=== PATIENT | female | born 1985 | race Caucasian/White ===

== ENCOUNTER 2018-05-06 20:11 | Emergency (ER) | payer OTHER ==
[2018-05-06] MEDS ORDERED: Aluminum Hydroxide/Magnesium Hydroxide Susp 30 ML Cup PO ONE (20:40)
--- NOTE | 2018-05-06 20:58 | EDM.PDOC ---
ED HPI GENERAL MEDICAL PROBLEM - General Chief Complaint: Abdominal Pain Stated Complaint: STOMACH PAIN Time Seen by Provider: 05/06/18 20:30 Source of Information: Reports: Patient History Limitations: Reports: No Limitations - History of Present Illness INITIAL COMMENTS - FREE TEXT/NARRATIVE: Elsa is a 32-year-old female came in because of epigastric pain. Pain was insidious onset about 4 days ago, described as cramps.With no radiation. Tried Pepcid and Zantac with no relief. There is no associated nausea vomiting or diarrhea name is that any constipation. There is no shortness of breath or chest pain. Elsa is otherwise healthy with no active medical problems. - Related Data Home Meds: Home Meds Omeprazole 20 mg PO DAILY #30 tab. 05/06/18 [Rx] ED ROS GENERAL - Review of Systems Review Of Systems: ROS reveals no pertinent complaints other than HPI. ED EXAM, GI/ABD - Physical Exam Exam: See Below Exam Limited By: Altered Mental Status General Appearance: Alert, WD/WN Eyes: Bilateral: Normal Appearance, EOMI Ears: Normal External Exam, Normal Canal, Hearing Grossly Normal, Normal TMs Nose: Normal Inspection, Normal Mucosa, No Blood Neck: Normal Inspection Respiratory/Chest: No Respiratory Distress, Lungs Clear Cardiovascular: Normal Peripheral Pulses GI/Abdominal Exam: Normal Bowel Sounds, Soft, No Organomegaly, No Distention, Tender (Epigastric deep palpation). No: Non-Tender, Distended Course - Vital Signs Text/Narrative:: Maalox did not change her symptoms - Orders/Labs/Meds Labs: Laboratory Tests 05/06/18 05/06/18 Range/Units 21:00 21:00 WBC 6.9 (4.5-12.0) X10-3/uL RBC 4.01 (3.23-5.20) x10(6)uL Hgb 13.0 (11.5-15.5) g/dL Hct 36.9 (30.0-51.3) % MCV 92.2 (80-96) fL MCH 32.5 (27.7-33.6) pg MCHC 35.3 (32.2-35.4) g/dL RDW 11.8 (11.5-15.5) % Plt Count 159 (125-369) X10(3)uL MPV 9.8 (7.4-10.4) fL Neut % (Auto) 61.7 (46-82) % Lymph % (Auto) 27.8 (13-37) % Mariposa % (Auto) 5.6 (4-12) % Eos % (Auto) 4 (1.0-5.0) % Baso % (Auto) 1 (0-2) % Neut # (Auto) 4.2 (1.6-8.3) # Lymph # (Auto) 1.9 (0.6-5.0) # Mariposa # (Auto) 0.4 (0.0-1.3) # Eos # (Auto) 0.3 (0.0-0.8) # Baso # (Auto) 0.1 (0.0-0.2) # Sodium 142 (135-145) mmol/L Potassium 3.4 L (3.5-5.3) mmol/L Chloride 104 (100-110) mmol/L Carbon Dioxide 33 H (21-32) mmol/L BUN 13 (7-18) mg/dL Creatinine 0.8 (0.55-1.02) mg/dL Est Cr Clr Drug Dosing TNP Estimated GFR (MDRD) > 60 (>60) BUN/Creatinine Ratio 16.3 (9-20) Glucose 78 L (80-116) mg/dL Calcium 8.9 (8.6-10.2) mg/dL Total Bilirubin 0.3 (0.1-1.3) mg/dL AST 13 (5-25) IU/L ALT 16 (12-36) U/L Alkaline Phosphatase 60 (56-112) IU/L Total Protein 7.2 (6.0-8.0) g/dL Albumin 3.7 (3.5-5.2) g/dL Globulin 3.5 g/dL Albumin/Globulin Ratio 1.1 Amylase 30 (25-115) U/L Meds: Medications Discontinued Medications Generic Name Dose Route Start Last Admin Trade Name Freq PRN Reason Stop Dose Admin Al Hydroxide/Mg Hydroxide 30 ml 05/06/18 20:40 05/06/18 20:40 Mag-Al Susp PO 05/06/18 20:41 30 ml ONETIME ONE Administration Departure - Departure Time of Disposition: 21:33 Disposition: Home, Self-Care 01 Clinical Impression: Gastritis, Abdominal pain - Discharge Information Prescriptions: Omeprazole 20 mg PO DAILY #30 tab. Instructions: Peptic Ulcer, [id number] Referrals: Alison Mixon, [facility] [Primary Care Provider] - 3 Days Forms: ED Department Discharge - Problem List & Annotations (1) Epigastric abdominal pain SNOMED Code(s): 90154221 Code(s): R10.13 - EPIGASTRIC PAIN Status: Acute Current Visit: No - Problem List Review Problem List Initiated/Reviewed/Updated: Yes - Assessment/Plan Assessment:: I will send her home on omeprazole 20 mg a day. Differential diagnostic considerations include peptic ulcer disease, GERD, IBS. I've asked her to return to the ED with any worsening symptoms. Otherwise see her PCP on or Saturday. Plan: I will send her home on omeprazole 20 mg a day. Differential diagnostic considerations include peptic ulcer disease, GERD, IBS. I've asked her to return to the ED with any worsening symptoms. Otherwise see her PCP on or Saturday.
== END 2018-05-06 21:50 | disposition home or self-care (01) ==
LOC: FB.ED 20:11
DX: K29.70 Gastritis, unspecified, without bleeding (principal)
CPT/HCPCS: 36415; 80053; 82150; 85025; 99284; A9270-GY

== ENCOUNTER 2018-08-26 11:12 | Emergency (ER) | payer OTHER ==
--- NOTE | 2018-08-26 12:14 | EDM.PDOC ---
ED HPI GENERAL MEDICAL PROBLEM - General Chief Complaint: Respiratory Problem Stated Complaint: COUGH Time Seen by Provider: 08/26/18 11:12 Source of Information: Reports: Patient History Limitations: Reports: No Limitations - History of Present Illness INITIAL COMMENTS - FREE TEXT/NARRATIVE: 33 years old w f -smoker-come to the ed due to cold symptoms with productive cough and gen bodyache. No N/V/D, dizziness or any other acute med issues. BP 130/76 Pulse 110 RR 18 Pulse ox 98% on RA Temp 37.2 Onset: Unknown/Unsure Onset Date: 08/24/18 Onset Time: 06:00 Duration: Hour(s):, Day(s):, Getting Worse, Intermittent Location: Reports: Chest Quality: Reports: Burning Severity: Mild Improves with: Reports: Rest Worsens with: Reports: Movement Context: Reports: Sick Contact Associated Symptoms: Reports: Cough - Related Data Allergies Allergy/AdvReac Type Severity Reaction Status Date / Time hydrocodone Allergy Nausea Verified 08/26/18 11:23 Home Meds: Home Meds Omeprazole 20 mg PO DAILY #30 tab.rap.dr 05/06/18 [Rx] Codeine/guaiFENesin [Robitussin AC] 5 ml PO BID PRN #1 bottle 08/26/18 [Rx] Sulfamethoxazole/Trimethoprim [Bactrim Ds Tablet] 1 each PO BID #20 tablet 08/26 [Rx] Past Medical History HEENT History: Reports: Impaired Vision - Past Surgical History HEENT Surgical History: Reports: Tonsillectomy, Other (See Below) Other HEENT Surgeries/Procedures: right eardrum repair Female Surgical History: Reports: Section, Tubal Ligation Musculoskeletal Surgical History: Reports: Other (See Below) Other Musculoskeletal Surgeries/Procedures:: back surgery , ankle repair -2015 ED ROS GENERAL - Review of Systems Review Of Systems: See Below Constitutional: Reports: Chills, Weakness HEENT: Reports: No Symptoms Respiratory: Reports: Cough (productive) Cardiovascular: Reports: No Symptoms Endocrine: Reports: No Symptoms GI/Abdominal: Reports: No Symptoms : Reports: No Symptoms Musculoskeletal: Reports: No Symptoms Skin: Reports: No Symptoms Neurological: Reports: No Symptoms Psychiatric: Reports: No Symptoms Hematologic/Lymphatic: Reports: No Symptoms Immunologic: Reports: No Symptoms ED EXAM, GENERAL - Physical Exam Exam: See Below Exam Limited By: No Limitations General Appearance: Alert, WD/WN, Mild Distress Eye Exam: Bilateral Eye: Normal Inspection Ears: Normal External Exam Ear Exam: Bilateral Ear: Auricle Normal Nose: Normal Inspection, Normal Mucosa Throat/Mouth: Normal Inspection, Normal Lips, Normal Voice, No Airway Compromise Head: Atraumatic, Normocephalic Neck: Normal Inspection, Supple, Non-Tender, Full Range of Motion Respiratory/Chest: No Respiratory Distress, Lungs Clear, Normal Breath Sounds, No Accessory Muscle Use, Chest Non-Tender Cardiovascular: Normal Peripheral Pulses, Regular Rate, Rhythm, No Edema, No Gallop, No JVD, No Murmur, No Rub GI/Abdominal: Normal Bowel Sounds, Soft, Non-Tender, No Organomegaly, No Distention, No Abnormal Bruit, No Mass, Pelvis Stable (Female) Exam: Deferred Rectal (Female) Exam: Deferred Back Exam: Normal Inspection, Full Range of Motion Extremities: Normal Inspection, Normal Range of Motion, Non-Tender, No Pedal Edema, Normal Capillary Refill Neurological: Alert, Oriented, CN II-XII Intact, Normal Cognition, Normal Gait Psychiatric: Normal Affect, Normal Mood Skin Exam: Warm, Dry, Intact, Normal Color, No Rash Lymphatic: No Adenopathy Course - Vital Signs Text/Narrative:: 33 years old w f -smoker-come to the ed due to cold symptoms with productive cough and gen bodyache. No N/V/D, dizziness or any other acute med issues. BP 130/76 Pulse 110 RR 18 Pulse ox 98% on RA Temp 37.2 PE: WNWD W F with prod cough and gen body ache, ronchi Labs; WBC was 14.2 K otherwise labs were nl Imaging: CXR: atelectasi vs verly early pneumonia Impression: Viral syndrom, acute bronchitis Tx: Toradol, Bactrim, Codeine cough meds Reexam: Improved Plan: D/C with instructions Last Recorded V/S: Last Vital Signs Temp 36.9 C 08/26/18 12:55 Pulse 98 08/26/18 12:55 Resp 18 08/26/18 12:55 BP 128/74 08/26/18 12:55 Pulse Ox 99 08/26/18 12:55 - Orders/Labs/Meds Orders: Active Orders 24 hr Category Date Time Status CULTURE BLOOD [BC] Routine Lab 08/26/18 12:53 Received CULTURE BLOOD [BC] Stat Lab 08/26/18 12:45 Received Labs: Laboratory Tests 08/26/18 08/26/18 08/26/18 Range/Units 12:45 12:45 12:45 WBC 14.7 H (4.5-12.0) X10-3/uL RBC 3.98 (3.23-5.20) x10(6)uL Hgb 12.8 (11.5-15.5) g/dL Hct 36.7 (30.0-51.3) % MCV 92.3 (80-96) fL MCH 32.3 (27.7-33.6) pg MCHC 35.0 (32.2-35.4) g/dL RDW 12.2 (11.5-15.5) % Plt Count 230 (125-369) X10(3)uL MPV 8.4 (7.4-10.4) fL Neutrophils % (Manual) 82 (46-82) % Lymphocytes % (Manual) 11 L (13-37) % Monocytes % (Manual) 6 (4-12) % Eosinophils % (Manual) 1 (0-5) % Sodium 140 (135-145) mmol/L Potassium 3.9 (3.5-5.3) mmol/L Chloride 104 (100-110) mmol/L Carbon Dioxide 28 (21-32) mmol/L BUN 8 (7-18) mg/dL Creatinine 0.8 (0.55-1.02) mg/dL Est Cr Clr Drug Dosing 91.68 mL/min Estimated GFR (MDRD) > 60 (>60) BUN/Creatinine Ratio 10.0 (9-20) Glucose 93 (80-116) mg/dL Lactic Acid 1.1 (0.4-2.2) mmol/L Calcium 8.8 (8.6-10.2) mg/dL Meds: Medications Discontinued Medications Generic Name Dose Route Start Last Admin Trade Name Freq PRN Reason Stop Dose Admin Guaifenesin/Codeine Phosphate 5 ml 08/26/18 12:20 08/26/18 12:32 Robitussin Ac PO 08/26/18 12:21 5 ml ONETIME ONE Administration Departure - Departure Time of Disposition: 13:40 Disposition: Home, Self-Care 01 Condition: Good Clinical Impression: Viral syndrome, Acute bronchitis - Discharge Information Prescriptions: Codeine/guaiFENesin [Robitussin AC] 5 ml PO BID PRN #1 bottle PRN Reason: Cough Sulfamethoxazole/Trimethoprim [Bactrim Ds Tablet] 1 each PO BID #20 tablet Referrals: PCP,None [Primary Care Provider] - Forms: ED Department Discharge Additional Instructions: Please quit tobacco use, take the Abx and cough meds as recommended, Tylenol/ Motrin for pain, please f/u, com back if your symptoms get worse acutely - My Orders Last 24 Hours: My Active Orders 08/26/18 12:45 CULTURE BLOOD [BC] Stat 08/26/18 12:53 CULTURE BLOOD [BC] Routine - Assessment/Plan Last 24 Hours: My Active Orders 08/26/18 12:45 CULTURE BLOOD [BC] Stat 08/26/18 12:53 CULTURE BLOOD [BC] Routine
[2018-08-26] MEDS ORDERED: Codeine/guaiFENesin 100-10 MG/5 ML Syrup 5 ML Cup PO ONE (12:20)
--- NOTE | 2018-08-26 13:57 | CR ---
INDICATION: Cough. PA AND LATERAL CHEST: COMPARISON EXAMINATIONS: None. FINDINGS: Moderate curvilinear patchy airspace opacity left lower lobe perihilar basilar region. No cardiomegaly, large pleural effusion, interstitial edema, or pneumothorax otherwise. Osseous elements otherwise unremarkable. IMPRESSION: Moderate left lower lobe segmental atelectasis and/or scarring change versus superimposed early consolidation for pneumonitis, pneumonia or aspiration. MTDD
== END 2018-08-26 13:55 | disposition home or self-care (01) ==
LOC: FB.ED 11:12
DX: J20.9 Acute bronchitis, unspecified (principal); B34.9 Viral infection, unspecified; Z88.5 Allergy status to narcotic agent
CPT/HCPCS: 36415; 71046; 80048; 83605; 85025; 87040; 87804; 87807; 99283; A9270